=== PATIENT | male | born 1965 | race Caucasian/White ===

== ENCOUNTER 2018-03-08 09:01 | Emergency (ER) | payer OTHER ==
[2018-03-08 10:23] LABS: BASO # 0.1 10^3/uL (0.0-0.2); BASO % 0.9 % (0.0-1.0); EOS # 0.1 10^3/uL (0.0-0.50); HEMATOCRIT 45.8 % (42.0-52.0); HEMOGLOBIN 15.4 g/dl (13.5-17.5); IMMATURE GRANULOCYTE % 0.4 % (0-3.0); LYMPH # 1.7 10^3/uL (1.5-4.5); MEAN CORPUSCULAR HEMOGLOBIN 30.7 pg (27.0-33.0); MEAN CORPUSCULAR HGB CONC 33.6 g/dl (32.0-36.5); MEAN CORPUSCULAR VOLUME 91.4 fl (80.0-96.0); MONO # 0.7 10^3/uL (0.0-0.8); MONO % 13.1 % (0.0-5.0); NEUTROPHILS # 2.9 10^3/uL (1.8-7.7); NEUTROPHILS % 52.6 % (36.0-66.0); PLATELET COUNT, AUTOMATED 282 10^3/uL (150-450); RED BLOOD COUNT 5.01 10^6/uL (4.30-6.10); RED CELL DISTRIBUTION WIDTH 13.2 % (11.5-14.5); WHITE BLOOD COUNT 5.6 10^3/uL (4.0-10.0)
[2018-03-08 10:45] LABS: ANION GAP 6 MEQ/L (8-16); BLOOD UREA NITROGEN 16 MG/DL (7-18); CARBON DIOXIDE LEVEL 28 MEQ/L (21-32); CHLORIDE LEVEL 105 MEQ/L (98-107); CPK CREATINE PHOSPHOKINASE 168 U/L (39-308); CREATININE FOR GFR 1.02 MG/DL (0.70-1.30); GLOMERULAR FILTRATION RATE > 60.0 (>56); GLUCOSE, FASTING 108 MG/DL (70-100); MB/CK RELATIVE INDEX 1.73 (< OR =4); SODIUM LEVEL 139 MEQ/L (136-145); THYROID STIMULATING HORMONE 0.887 uIU/ML (0.358-3.740); TROPONIN I < 0.02 NG/ML (< 0.10)
== END 2018-03-08 11:19 | disposition home or self-care (01) ==
LOC: M ED 09:01
DX: R51 Headache (principal); I10 Essential (primary) hypertension; D68.0 Von Willebrand disease; Z79.899 Other long term (current) drug therapy
CPT/HCPCS: 71046

== ENCOUNTER → 2018-12-10 | Outpatient (CLI) | payer OTHER ==
[~2018-12-10] MED LIST: FLON1SPR NARES; IBUP200C25 PO; LISI-542 PO; OXYC1TAB23 PO
[2018-12-10 14:23] LABS: APPEARANCE, URINE CLEAR (CLEAR); BACTERIA, URINE AUTO 1+ (NEGATIVE); BILIRUBIN, URINE AUTO NEGATIVE (NEGATIVE); BLOOD, URINE BLOOD 3+ (NEGATIVE); COLOR, URINE YELLOW (YELLOW); GLUCOSE, URINE (UA) AUTO NEGATIVE (NEGATIVE); KETONE, URINE AUTO NEGATIVE (NEGATIVE); LEUKOCYTE ESTERASE, URINE AUTO NEGATIVE (NEGATIVE); MUCUS, URINE SMALL (NEGATIVE); NITRITE, URINE AUTO NEGATIVE (NEGATIVE); PROTEIN, URINE AUTO NEGATIVE (NEGATIVE); RBC, URINE AUTO 57 /HPF (0-3); SPECIFIC GRAVITY URINE AUTO 1.004 (1.002-1.035); SQUAMOUS EPITHELIAL CELL UR AU 0 /HPF (0-6); UROBILINOGEN, URINE AUTO 0.2 mg/dL (0.0-2.0); WBC, URINE AUTO 1 /HPF (0-3)
--- NOTE | 2018-12-11 05:09 | REP ---
Clinical: Ureterolithiasis. Technique: Two supine views of the abdomen and pelvis. Findings: Bilateral intrarenal calculi noted. Ureteral calcifications cannot be excluded and evaluation is limited due to technique and overlying bowel gas. A possible 2 mm distal left ureteral calculus versus phlebolith is noted in the pelvis. Bowel gas pattern is nonspecific. Skeletal structures are intact. Impression: Bilateral renal and possible distal left ureteral calculi. Electronically Signed by Aureliano Pichardo MD 12/11/2018 05:01 A
== END ==
LOC: M SMT 08:50
PROVIDERS: ATTEND Urology
DX: N20.1 Calculus of ureter (principal)

== ENCOUNTER → 2019-01-21 | Outpatient (CLI) | payer OTHER ==
[~2019-01-21] MED LIST changes: +CARV25TA PO; +ENTR1TAB7 PO; +FLOM0.4C39 PO; +LIDOCAINE 1% MDV 20ML VIAL As Ordered ONE
[2019-01-21 14:22] VITALS: BP 137/82
--- NOTE | 2019-01-21 16:15 | REP ---
CT-guided paraspinal biopsy The procedure is performed by YASMANY Jefferson, under the direct supervision of Dr. Carvajal. The patient has a history of a 3.9 x 2.30 cm soft tissue paraspinal mass encroaching on the right aspect of the spinal canal on an outside MRI dated 12/21/2018. The risks and benefits of the procedure were explained to the patient and informed consent was obtained both orally and written. Directly prior to the start of the procedure, a formal timeout was done in the exam room. The right paraspinal mass was localized using CT guidance. Skin was prepped and draped in the usual sterile fashion. 4 ml of 1% lidocaine was used as a local anesthetic. Using CT guidance a 19/20 gauge coaxial needle biopsy system was inserted and advanced into the mass. 3 core biopsy samples were obtained and sent to the lab. CT images obtained directly after the biopsy show no evidence of pneumothorax. After the appropriate amount of monitored convalescence the patient was discharged from the department. Reviewed by YASMANY Valladares 01/21/2019 03:20 P Electronically Signed by Pierre Carvajal MD 01/21/2019 04:06 P
== END ==
LOC: M IRPRO 12:12
DX: R22.2 Localized swelling, mass and lump, trunk (principal)

== ENCOUNTER → 2019-02-26 | Outpatient (CLI) | payer OTHER ==
[~2019-02-26] MED LIST changes: +ALLO100T PO; +ATIV1TAB7 PO; +FENT50DI5; -LIDOCAINE 1% MDV 20ML VIAL As Ordered ONE; +LORA1TAB12 PO; +TRAN650T PO
--- NOTE | 2019-02-27 15:49 | REP ---
HISTORY: Large B-cell lymphoma. After the intravenous administration of 8.71 mCi of FDG-18 triplane whole body PET/CT was performed from the skull base to the mid thigh. There is abnormal hypermetabolic activity seen in multiple supra-, retro-, and subclavicular lymph nodes with SUV values ranging from +4 to +9 bilaterally. There is hypermetabolic activity seen in the left axilla consistent with adenopathy with SUV values of 5.83. There is a large area of abnormal hypermetabolic activity seen in the right paraspinal region from approximately T4 to T7 with marked increased SUV values of over 20. Scattered abnormal hypermetabolic activity is seen in the osseous pelvis and throughout the thoracic and lumbar spine and including the sacrum with SUV values ranging from 5.16 to 10.98. Abnormal hypermetabolic activity is also seen scattered in the proximal left femur. IMPRESSION: Abnormal hypermetabolic activity seen in the soft tissues of the neck root and chest along with the left axillary region consistent with lymphadenopathy and seen in conjunction with what is most probably the primary abnormality in the right paraspinal region as described above. The lymphadenopathy is likely due to metastatic disease. There is evidence of abnormal hypermetabolic activity from metastatic disease in the axial and appendicular skeleton as described above. Electronically Signed by Hasmukh Arreaga DO 02/27/2019 04:30 P
== END ==
LOC: M PLARAD 11:37
PROVIDERS: ATTEND Internal Medicine Hematology & Oncology
DX: R93.89 Abnormal findings on diagnostic imaging of other specified body structures (principal); C83.30 Diffuse large B-cell lymphoma, unspecified site
CPT/HCPCS: 78815; A9552

== ENCOUNTER → 2019-09-03 | Outpatient (CLI) | payer OTHER ==
[~2019-09-03] MED LIST changes: +ACYC400T; +ENTR1TAB4 PO; +FLUC200T2 PO; -LORA1TAB12 PO; +LORA1TAB4; +LORA1TAB4 PO; +OLAN10TA2 PO; +ONDA8TAB10 PO; +OXYC-517 PO; +ROPI0.5T3 PO; +SERT50TA29 PO; +STOO1TAB2 PO; +SULF1TAB93 PO; +ZARX0.05 INJ
--- NOTE | 2019-09-04 10:10 | REP ---
PET/CT: HISTORY: Restaging diffuse large B-cell lymphoma. COMPARISONS: Comparison PET/CT study February 26, 2019. TECHNIQUE: 46 minutes following the intravenous injection of a of 8.26 mCi dose of F-18 FDG, three-dimensional PET scintigraphy is acquired from the skull base to the proximal thighs. Triplanar noncontrast CT scanning is acquired through the same anatomic range for attenuation correction, and image registration with scan parameters optimized to minimize radiation exposure to the patient. PET scintigraphy and CT datasets were fused and displayed on a workstation with multiplanar and projection display capability. PET/CT FINDINGS: There is dramatic improvement. There is only a small 1.5 cm lymph node visible in the left supraclavicular region where prior study showed a matted adenopathy. This remaining lymph node is not hypermetabolic, maximum standard uptake value 1.74. There is no visible mediastinal adenopathy or hypermetabolic uptake on today's PET/CT study. Granulomatous calcific residuals are again seen in mediastinal and right hilar lymph nodes. A right-sided [id number]-H-[id number] catheter is noted. No abnormal pulmonary parenchymal hypermetabolic uptake is appreciated. There is minimal uptake in a band of linear atelectasis in the lingula at the left base, SUV 2.55. Improvement is noted in the abdomen. Upper retroperitoneal lymphadenopathy is much improved morphologically. There is residual minimal uptake in a 1.5 cm pericaval lymph node with maximum standard uptake value 2.57, previously 4.28. There is no other visible at retroperitoneal or abdominal adenopathy and no other abnormal silvia uptake is seen. Previous study showed multifocal skeletal hypermetabolic uptake. None of those lesions are currently visible. There is some arthropathy associated periarticular soft tissue uptake about the shoulders. No suspicious musculoskeletal uptake is seen. The reference organ uptake values are 2.88 maximum SUV for liver parenchyma and 2.11 for blood pool. Accordingly, the patient's remaining observable silvia uptake in the left supraclavicular region is Deauville score 1-2 and the upper abdominal node is Deauville score 2-3. IMPRESSION: Dramatically improved PET/CT findings. Electronically Signed by Inocencio Gillespie MD 09/04/2019 11:49 A
== END ==
LOC: M PLARAD 14:24
DX: C83.32 Diffuse large B-cell lymphoma, intrathoracic lymph nodes (principal)
CPT/HCPCS: 78815; A9552

== ENCOUNTER → 2020-05-10 | Outpatient (CLI) | payer OTHER ==
[~2020-05-10] MED LIST changes: +HYDR-643 PO
== END ==
LOC: M LABSMTC 08:56
PROVIDERS: ATTEND Internal Medicine Cardiovascular Disease
DX: Z01.812 Encounter for preprocedural laboratory examination (principal); Z20.828 Contact with and (suspected) exposure to other viral communicable diseases

== ENCOUNTER → 2021-02-03 | Outpatient (CLI) | payer OTHER ==
[~2021-02-03] MED LIST changes: +ACYC1TAB; -ACYC400T; +AMIT25TA17; +BACTDSTA PO; -LISI-542 PO; +LISI-898 PO; -OLAN10TA2 PO; +OLAN1TAB20 PO; -SULF1TAB93 PO
--- NOTE | 2021-02-04 18:18 | REPVR ---
PROCEDURE INFORMATION: Exam: CT Head Without Contrast Exam date and time: 02/03/2021 12:58 PM Age: 55 years old Clinical indication: Pain; Headache; Migraine; Additional info: Migraines, occipital neuralgia, dizziness/giddines TECHNIQUE: Imaging protocol: Computed tomography of the head without contrast. Radiation optimization: All CT scans at this facility use at least one of these dose optimization techniques: automated exposure control; mA and/or kV adjustment per patient size (includes targeted exams where dose is matched to clinical indication); or iterative reconstruction. COMPARISON: CT Head without contrast 03/08/2018 9:55 AM FINDINGS: Brain: Nonspecific 9 mm hypodensity in the left frontal lobe is unchanged. No evidence of an acute infarction. No midline shift or mass effect. No intracranial hemorrhage. Cerebral ventricles: No ventriculomegaly. Paranasal sinuses: Visualized sinuses are clear. Mastoid air cells: Mastoid air cells are clear. Bones/joints: Unremarkable. No acute fracture. Soft tissues: Unremarkable. IMPRESSION: 1. Stable 9 mm hypodensity in the left frontal lobe. 2. No acute intracranial abnormality. Electronically signed by: Jay Maldonado On 02/04/2021 18:18:08 PM
== END ==
LOC: M PLAIMG 12:12
PROVIDERS: ATTEND Psychiatry & Neurology Neurology
DX: G43.719 Chronic migraine without aura, intractable, without status migrainosus (principal)

== ENCOUNTER → 2021-02-03 | Outpatient (CLI) | payer OTHER ==
[~2021-02-03] MED LIST changes: +GASTROGRAFIN SOLUTION 30ML (Q9963) ONE; +ISOVUE-370 76% 100ML VIAL ONE
--- NOTE | 2021-02-04 10:00 | REP ---
INDICATION: LYMPHOMA. COMPARISON: 12/20/2018 TECHNIQUE: Axial contrast-enhanced images from the lung bases to the pubic symphysis using oral and 100 cc Isovue 370 intravenous contrast material. Coronal and sagittal reformations obtained along with delayed images of the abdomen. This CT examination was performed using the following dose reduction techniques: Automated exposure control, adjustment of mA and/or kv according to the patient's size, and the use of iterative reconstruction technique. FINDINGS: Liver demonstrates diffuse fatty infiltration without focal hepatic lesion identified. Spleen, pancreas, gallbladder, and bilateral adrenal glands are normal. Kidneys demonstrate bilateral nonobstructing nephroliths measuring up to 9 mm in the lower pole right kidney and 9 mm in the lower pole left kidney. The enteric system including stomach, small, and large bowel appears normal. No evidence for obstruction or acute inflammatory process. Normal terminal ileum and appendix are identified in the right lower quadrant. Scattered colonic and sigmoid diverticula noted without acute diverticulitis. Pelvis demonstrates normal bladder and mildly prominent heterogeneous prostate gland. Fat containing left inguinal hernia noted. No ascites. No free air. No intraperitoneal or retroperitoneal adenopathy. Abdominal aorta and vasculature appear normal. Musculoskeletal structures are intact and without acute osseous abnormality. IMPRESSION: No evidence for recurrence/metastatic disease, adenopathy or ascites.. Bilateral nephrolithiasis. Hepatosteatosis. Diverticulosis. Mildly enlarged prostate gland. <Electronically signed by Aureliano Pichardo > 02/04/21 [id number]
--- NOTE | 2021-02-04 10:05 | REP ---
INDICATION: LYMPHOMA COMPARISON: None TECHNIQUE: Axial contrast enhanced images from the thoracic inlet to the upper abdomen using 100 ml Isovue 370 intravenous contrast material followed by CT of the abdomen and pelvis. Coronal and sagittal reformations obtained This CT examination was performed using the following dose reduction techniques: Automated exposure control, adjustment of mA and/or kv according to the patient's size, and use of iterative reconstruction technique. FINDINGS: Lung bean are well aerated. There is minimal chronic appearing primarily posterior pleural thickening along with few scattered calcified granulomata, minimal chronic appearing interstitial changes, and multiple calcified mediastinal and hilar lymph nodes. These findings are consistent with post therapeutic changes and/or prior granulomatous disease. No acute consolidation, suspicious nodule or mass. No effusion. No pneumothorax. Tracheobronchial tree is patent. No acute mediastinal adenopathy is appreciated although there appears to be a somewhat prominent lymph node in the left axilla measuring up to 16 mm. Further evaluation of the mediastinum demonstrates normal thoracic aorta without aneurysm or dissection. Evidence for prior CABG and pacemaker. No cardiomegaly or pericardial effusion. Musculoskeletal structures intact and without acute osseous abnormality. IMPRESSION: 1. No acute mediastinal or pleuroparenchymal process. 2. No evidence for recurrence/metastatic disease. 3. Chronic changes consistent with prior granulomatous disease or post therapeutic changes. <Electronically signed by Aureliano Pichardo > 02/04/21 [id number]
== END ==
LOC: M PLAIMG 12:09
PROVIDERS: ATTEND Internal Medicine Medical Oncology
DX: N20.0 Calculus of kidney (principal); K76.0 Fatty (change of) liver, not elsewhere classified; K57.30 Diverticulosis of large intestine without perforation or abscess without bleeding; N40.0 Benign prostatic hyperplasia without lower urinary tract symptoms; C83.30 Diffuse large B-cell lymphoma, unspecified site